=== PATIENT | female | born 1990 | race Caucasian/White ===

== ENCOUNTER 2017-06-26 21:00 | Inpatient (IN) | payer OTHER ==
[~2017-06-26] VITALS: Ht 157.5 cm; Wt 100.2 kg
[2017-06-26] MEDS ORDERED: LR 1,000 ML IV ONE (21:44)
[2017-06-26] MEDS ORDERED: OXYTOCIN/NORMAL SALINE 1,000 ML IV SCH (21:44)
[2017-06-26] MEDS ORDERED: TERBUTALINE SULFATE 1 MG/ML VIAL SUBCUT ONE (21:45)
[2017-06-26] MEDS ORDERED: NALBUPHINE HCL 10 MG/ML AMP IVP PRN (21:45)
[2017-06-26] MEDS: LR 1,000 ML IV SCH (22:05)
[2017-06-26 22:25] LABS: BASOPHILS % (AUTO) 0.3 % (0.0-2.0); EOSINOPHILS % (AUTO) 0.3 % (0.0-4.0); HEMATOCRIT 33.4 % (36-48); HEMOGLOBIN 11.4 g/dL (12.0-16.0); LYMPHOCYTES # (AUTO) 1.7 K/uL (1.0-5.5); LYMPHOCYTES % (AUTO) 10.1 % (20.5-51.5); MEAN CORPUSCULAR HEMOGLOBIN 28 pg (27-31); MEAN CORPUSCULAR HGB CONC 34 % (32-36); MEAN CORPUSCULAR VOLUME 81 fL (79.0-98.0); MONOCYTES # (AUTO) 0.6 K/uL (0.0-1.0); MONOCYTES % (AUTO) 3.7 % (1.7-9.3); NEUTROPHILS # (AUTO) 14.1 K/uL (1.8-7.7); NEUTROPHILS % (AUTO) 85.6 % (40.0-70.0); PLATELET COUNT (AUTO) 268 K/uL (130-430); RED BLOOD CELL COUNT(AUTO) 4.11 MIL/uL (4.2-6.2); WHITE BLOOD COUNT (AUTO) 16.4 K/uL (4.8-10.8)
[2017-06-26] MEDS ORDERED: fentaNYL CITRATE/PF 100 MCG/2 ML AMP ONE (23:39)
[2017-06-26] MEDS ORDERED: FENT2mCg/mL-ROPIVA0.2%/NS EPID 150 ML EP ONE (23:39)
[2017-06-27] MEDS ORDERED: LR 500 ML IV ONE (00:17)
[2017-06-27] MEDS ORDERED: FENT2mCg/mL-ROPIVA0.2%/NS EPID 150 ML EP SCH (00:30)
[2017-06-27 02:46] VITALS: BP_SYST 103
[2017-06-27] MEDS: LR 1,000 ML IV SCH (03:54)
[2017-06-27] MEDS ORDERED: SENNOSIDES/DOCUSATE SODIUM 1 TAB TABLET(SENOKOT-S) PO PRN (10:30)
[2017-06-27] MEDS ORDERED: MEASLES,MUMPS&RUBELLA VACC/PF 12500 UNIT/0.5 ML VIAL SUBQ PRN (10:30)
[2017-06-27] MEDS ORDERED: HYDROCORTISONE 0.5%, 28.35 GM TOPICAL CREAM TP PRN (10:30)
[2017-06-27] MEDS ORDERED: GLYCERIN/WITCH HAZEL (TUCKS PADS) TP PRN (10:30)
[2017-06-27] MEDS ORDERED: DERMOPLAST SPRAY TP PRN (10:30)
[2017-06-27] MEDS ORDERED: OXYCODONE/ACETAMINOPHEN 5-325 TABLET PO PRN ×2 (10:30)
[2017-06-27] MEDS ORDERED: OXYTOCIN/NORMAL SALINE 1,000 ML IV ONE (10:30)
[2017-06-27] MEDS ORDERED: LANOLIN 7 GM OINT. TP PRN (10:30)
[2017-06-27] MEDS ORDERED: METHYLERGONOVINE MALEATE 0.2 MG TABLET PO PRN (10:30)
[2017-06-27] MEDS ORDERED: DIPH-TET-PERTUS Vaccine 0.5 ML VIAL (ADACEL) I.M. PRN (10:30)
[2017-06-27] MEDS ORDERED: ACETAMINOPHEN 325 MG TABLET PO PRN (10:30)
[2017-06-27] MEDS ORDERED: OXYTOCIN/NORMAL SALINE 1,000 ML IV SCH (10:30)
[2017-06-27] MEDS ORDERED: RHO(D) IMMUNE GLOBULIN/MALTOSE 1500 UNITS/1.3 ML (WINHRO) IM PRN (10:30)
[2017-06-27] MEDS ORDERED: DOCUSATE SODIUM 100 MG CAPSULE PO PRN (10:30)
[2017-06-27] MEDS ORDERED: ANUSOL 1 EA SUPP.RECT (PREPARATION H) RC PRN (10:30)
[2017-06-27] MEDS: IBUPROFEN 600 MG TABLET PO SCH ×3 (12:27→23:38)
[2017-06-27] MEDS ORDERED: TEMAZEPAM 15 MG CAPSULE PO PRN (21:00)
[2017-06-28] MEDS: IBUPROFEN 600 MG TABLET PO SCH ×2 (06:26→12:36)
[2017-06-28 06:51] LABS: HEMATOCRIT 29.9 % (36-48)
[2017-06-28 06:56] LABS: HEMOGLOBIN 9.9 g/dL (12.0-16.0)
[2017-06-28] MEDS ORDERED: LIDOCAINE PF 1% 30ML(POUR BTL) INJ ONE (17:29)
[2017-06-28] MEDS ORDERED: BUPIVACAINE /PF 0.5% 30 ML VIAL INJ ONE (17:29)
[2017-06-28] MEDS ORDERED: MINERAL OIL 30 ML UDC PO ONE (17:29)
== END 2017-06-28 17:30 | disposition home or self-care (01) | DRG 775 ==
LOC: SPU 21:00
PROVIDERS: ADMIT Obstetrics & Gynecology; ATTEND Obstetrics & Gynecology
PROC: 10D07Z6 Extraction of Products of Conception, Vacuum, Via Natural or Artificial Opening (ICD-10-PCS; principal; 2017-06-27)
PROC: 0KQM0ZZ Repair Perineum Muscle, Open Approach (ICD-10-PCS; 2017-06-27)
PROC: 3E0S3BZ Introduction of Anesthetic Agent into Epidural Space, Percutaneous Approach (ICD-10-PCS; 2017-06-27)
PROC: 00HU33Z Insertion of Infusion Device into Spinal Canal, Percutaneous Approach (ICD-10-PCS; 2017-06-27)
DX: O69.81X0 Labor and delivery complicated by cord around neck, without compression, not applicable or unspecified (principal); O70.1 Second degree perineal laceration during delivery; O77.0 Labor and delivery complicated by meconium in amniotic fluid; Z3A.38 38 weeks gestation of pregnancy; Z37.0 Single live birth
CPT/HCPCS: 36415; 85018-TC; 85025; 86592; 86886; 86900; 86901; J2001; J2590; J3010; J3490; J7120